=== PATIENT | male | born 2000 | race African-American/Black ===

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

== ENCOUNTER 2021-01-22 11:12 | Emergency (ER) | payer SELFPAY ==
[~2021-01-22] VITALS: Ht 172.7 cm; Wt 80.0 kg
[~2021-01-22 11:12] MED LIST: ZOFRAN4 M1 PO
[2021-01-22 11:47] LABS: URINE BILIRUBIN - DIPSTICK NEGATIVE (NEGATIVE); URINE BLOOD DIPSTICK TRACE-INTACT (NEGATIVE); URINE COLOR YELLOW; URINE GLUCOSE - DIPSTICK NEGATIVE (NEGATIVE); URINE KETONE NEGATIVE (NEGATIVE); URINE LEUK ESTERASE LARGE (NEGATIVE); URINE NITRITE - DIPSTICK NEGATIVE (Negative); URINE PH 6.5 (4.5-8.0); URINE PROTEIN - DIPSTICK NEGATIVE (NEG-TRACE); URINE UROBILINOGEN - DIPSTICK 0.2 E.U./dL (0.2)
[2021-01-22 11:53] LABS: URINE WBC 50-100 WBC/hpf (0-5)
[2021-01-22] MEDS ORDERED: KEFLEX500 MG PO (12:23)
[2021-01-22] MEDS ORDERED: NO HOME MEDS (12:36)
[2021-01-22 12:37] VITALS: BP 121/76
== END 2021-01-22 12:37 | disposition home or self-care (01) | DRG 690 ==
LOC: ED 11:12
PROVIDERS: Emergency Medicine
DX: N34.2 Other urethritis (principal)

== ENCOUNTER 2021-07-27 00:08 | Emergency (ER) | payer OTHER ==
[~2021-07-27] VITALS: Ht 180.3 cm; Wt 75.0 kg
[~2021-07-27 00:08] MED LIST changes: +KEFLEX500 MG PO; +NO HOME MEDS
[2021-07-27 00:51] LABS: HEMATOCRIT 47.7 % (39.0-50.0); HEMOGLOBIN 15.5 g/dl (14.0-18.0); IMMATURE GRANULOCYTES 0.2 % (0.0-5.0); MEAN CELL VOLUME 90.3 fL CALC (80.0-100.0); MEAN CORPUSCULAR HGB 29.4 pG CALC (26.0-32.0); MEAN CORPUSCULAR HGB CONC 32.5 g/dL CAL (32.0-36.0); NEUT# 1.98 thou/uL (1.82-7.42); RED BLOOD COUNT 5.28 mill/uL (4.70-6.10); RED CELL DISTRI WIDTH 11.8 % (11.5-15.5)
[2021-07-27 01:13] LABS: ALBUMIN 4.8 g/dL (3.2-5.0); ALKALINE PHOSPHATASE 63 u/l (38-126); ANION GAP 15 (6-22 (CALC)); BILIRUBIN, TOTAL 0.8 mg/dL (0.0-1.4); BUN 12 mg/dL (8-21); BUN/CREATININE RATIO 10 (12-20 (CALC)); CARBON DIOXIDE 28 mmol/l (22-30); CHLORIDE 100 mmol/l (95-108); CREATININE 1.2 mg/dL (0.7-1.3); GFR > 60 ML/MIN (>=60 (CALC)); GFR FOR AFR.AMER. > 60 ML/MIN (>=60 (CALC)); SGOT/AST 25 u/l (17-59); SODIUM 138 mmol/l (137-146); TOTAL PROTEIN 8.4 g/dL (6.3-8.2)
[2021-07-27 01:30] VITALS: BP 107/71
[2021-07-27] MEDS ORDERED: TORADOL PO (01:35)
== END 2021-07-27 01:45 | disposition home or self-care (01) | DRG 866 ==
LOC: ED 00:08
PROVIDERS: Family Medicine
DX: B34.9 Viral infection, unspecified (principal); R07.89 Other chest pain; Z20.822 Contact with and (suspected) exposure to COVID-19

== ENCOUNTER 2023-01-18 10:00 | Emergency (ER) | payer OTHER ==
[2023-01-18] VITALS (17 sets, daily range): BP systolic 39–126; BP diastolic 19–95
[~2023-01-18] VITALS: Ht 180.3 cm; Wt 63.0 kg
[~2023-01-18 10:00] MED LIST changes: +TORADOL PO
[2023-01-18 10:28] LABS: BASO% 0.8 % (0-3); EOS% 4.2 % (0-8); HEMATOCRIT 48.7 % (39.0-50.0); HEMOGLOBIN 15.6 g/dl (14.0-18.0); LYMPH% 54.2 % (15-41); MEAN CELL VOLUME 92.2 fL CALC (80.0-100.0); MEAN CORPUSCULAR HGB 29.5 pG CALC (26.0-32.0); MONO% 9.4 % (2-13); NEUT# 1.56 thou/uL (1.82-7.42); NEUT% 31.4 % (42-76); RED BLOOD COUNT 5.28 mill/uL (4.70-6.10)
[2023-01-18 10:44] LABS: ALKALINE PHOSPHATASE 52 u/l (38-126); ANION GAP 13 (6-22 (CALC)); BUN 12 mg/dL (9-20); BUN/CREATININE RATIO 11 (12-20 (CALC)); CARBON DIOXIDE 28 mmol/l (22-30); CHLORIDE 104 mmol/l (95-108); CREATININE 1.1 mg/dL (0.7-1.3); ETHYL ALCOHOL 0 mg/dl (0-30); GFR FOR AFR.AMER. > 60 ML/MIN (>=60 (CALC)); GFR OTHER RACES > 60 ML/MIN (>=60 (CALC)); POTASSIUM 4.1 mmol/l (3.5-5.1); SGOT/AST 26 u/l (17-59); SODIUM 141 mmol/l (137-146); TOTAL PROTEIN 8.4 g/dL (6.3-8.2)
[2023-01-18 10:45] LABS: BILIRUBIN, TOTAL 0.4 mg/dL (0.2-1.3)
[2023-01-18 10:46] LABS: URINE BILIRUBIN - DIPSTICK NEGATIVE (NEGATIVE); URINE BLOOD DIPSTICK TRACE-INTACT (NEGATIVE); URINE COLOR YELLOW; URINE GLUCOSE - DIPSTICK NEGATIVE (NEGATIVE); URINE KETONE NEGATIVE (NEGATIVE); URINE LEUK ESTERASE NEGATIVE (NEGATIVE); URINE PROTEIN - DIPSTICK NEGATIVE (NEG-TRACE); URINE SPECIFIC GRAVITY 1.025; URINE UROBILINOGEN - DIPSTICK 0.2 E.U./dL (0.2)
[2023-01-18 10:48] LABS: URINE NITRITE - DIPSTICK NEGATIVE (Negative)
== END 2023-01-18 14:28 | disposition short-term general hospital (02) ==
LOC: ED 10:00
PROVIDERS: Family Medicine
DX: R56.9 Unspecified convulsions (principal); R10.84 Generalized abdominal pain; K57.30 Diverticulosis of large intestine without perforation or abscess without bleeding
CPT/HCPCS: J1953

== ENCOUNTER 2023-09-15 08:02 | Emergency (ER) | payer OTHER ==
[~2023-09-15] VITALS: Ht 180.3 cm; Wt 62.0 kg
[2023-09-15] VITALS (25 sets, daily range): BP systolic 101–153; BP diastolic 61–110
[~2023-09-15 08:02] MED LIST changes: +ONDANSETRON4 MG PO; +PROTONIX40 M2 PO; +TRAMADOL HYDROC50 M1 PO
[2023-09-15 09:10] LABS: BASO% 0.4 % (0-3); EOS% 1.3 % (0-8); HEMATOCRIT 43.8 % (39.0-50.0); HEMOGLOBIN 14.4 g/dl (14.0-18.0); IMMATURE GRANULOCYTES 0.1 % (0.0-5.0); LYMPH% 29.1 % (15-41); MEAN CORPUSCULAR HGB 30.3 pG CALC (26.0-32.0); MEAN CORPUSCULAR HGB CONC 32.9 g/dL CAL (32.0-36.0); MONO% 7.1 % (2-13); NEUT# 4.43 thou/uL (1.82-7.42); RED BLOOD COUNT 4.76 mill/uL (4.70-6.10); RED CELL DISTRI WIDTH 11.8 % (11.5-15.5)
[2023-09-15 09:37] LABS: ALBUMIN 4.7 g/dL (3.2-5.0); ALKALINE PHOSPHATASE 64 u/l (38-126); ANION GAP 14 (6-22 (CALC)); BILIRUBIN, TOTAL 0.7 mg/dL (0.2-1.3); BUN 16 mg/dL (9-20); BUN/CREATININE RATIO 14 (12-20 (CALC)); CARBON DIOXIDE 24 mmol/l (22-30); CHLORIDE 106 mmol/l (95-108); CREATININE 1.2 mg/dL (0.7-1.3); ETHYL ALCOHOL 0 mg/dl (0-30); GFR FOR AFR.AMER. > 60 ML/MIN (>=60 (CALC)); GFR OTHER RACES > 60 ML/MIN (>=60 (CALC)); LIPASE 59 u/l (23-300); POTASSIUM 4.6 mmol/l (3.5-5.1); SGOT/AST 27 u/l (17-59); SODIUM 139 mmol/l (137-146); TOTAL PROTEIN 7.6 g/dL (6.3-8.2)
[2023-09-15 11:03] LABS: URINE BILIRUBIN - DIPSTICK Negative (NEGATIVE); URINE BLOOD DIPSTICK Negative (NEGATIVE); URINE COLOR Yellow; URINE GLUCOSE - DIPSTICK Negative (NEGATIVE); URINE KETONE 80 mg/dL (NEGATIVE); URINE LEUK ESTERASE Negative (NEGATIVE); URINE NITRITE - DIPSTICK Negative (Negative); URINE PH 8.5 (4.5-8.0); URINE PROTEIN - DIPSTICK Trace mg/dL (NEG-TRACE); URINE UROBILINOGEN - DIPSTICK 0.2 E.U./dL (0.2)
== END 2023-09-15 13:44 | disposition home or self-care (01) ==
LOC: ED 08:02
PROVIDERS: Family Medicine
DX: R11.2 Nausea with vomiting, unspecified (principal); R10.84 Generalized abdominal pain

== ENCOUNTER 2024-04-25 01:22 | Emergency (ER) | payer BC ==
[~2024-04-25] VITALS: Ht 175.3 cm; Wt 62.0 kg
[2024-04-25] MEDS ORDERED: Pantoprazole Sodium 40 MG VIAL (Protonix) IV STA (01:38)
[2024-04-25] MEDS ORDERED: SODIUM CHLORIDE 0.9% 1,000 ML IV STA (01:38)
[2024-04-25] MEDS ORDERED: PROMETHAZINE HCL 25 MG/ML AMP IV ONE (01:40)
[2024-04-25] MEDS ORDERED: KETOROLAC TROMETHAMINE 30 MG/ML SDV IV ONE (01:45)
[2024-04-25] MEDS ORDERED: OMEPRAZOLE DR40 MG (02:15)
[2024-04-25 02:25] LABS: BASO% 0.3 % (0-3); EOS% 0.4 % (0-8); HEMOGLOBIN 15.3 g/dl (14.0-18.0); IMMATURE GRANULOCYTES 0.3 % (0.0-5.0); LYMPH% 19.8 % (15-41); MEAN CELL VOLUME 88.9 fL CALC (80.0-100.0); MEAN CORPUSCULAR HGB 30.2 pG CALC (26.0-32.0); MONO% 6.1 % (2-13); NEUT# 7.55 thou/uL (1.82-7.42); NEUT% 73.1 % (42-76); RED BLOOD COUNT 5.06 mill/uL (4.70-6.10); RED CELL DISTRI WIDTH 11.7 % (11.5-15.5)
[2024-04-25 02:37] LABS: BILIRUBIN, TOTAL 0.8 mg/dL (0.2-1.3); POTASSIUM 3.8 mmol/l (3.5-5.1); TOTAL PROTEIN 8.7 g/dL (6.3-8.2)
[2024-04-25 04:06] LABS: URINE BILIRUBIN - DIPSTICK Negative (NEGATIVE); URINE BLOOD DIPSTICK Negative (NEGATIVE); URINE COLOR Yellow; URINE GLUCOSE - DIPSTICK Negative (NEGATIVE); URINE KETONE 40 mg/dL (NEGATIVE); URINE LEUK ESTERASE Negative (NEGATIVE); URINE NITRITE - DIPSTICK Negative (Negative); URINE PH 8.5 (4.5-8.0); URINE PROTEIN - DIPSTICK Negative (NEG-TRACE); URINE UROBILINOGEN - DIPSTICK 0.2 E.U./dL (0.2)
[2024-04-25] MEDS ORDERED: PROMETHAZINE HY25 M1 PO (04:30)
[2024-04-25 04:34] VITALS: BP 128/83
== END 2024-04-25 04:52 | disposition home or self-care (01) | DRG 392 ==
LOC: ED 01:22
PROVIDERS: Family Medicine
DX: K52.9 Noninfective gastroenteritis and colitis, unspecified (principal); Z20.822 Contact with and (suspected) exposure to COVID-19
CPT/HCPCS: J2470

== ENCOUNTER 2024-08-30 12:09 | Emergency (ER) | payer OTHER ==
[~2024-08-30] VITALS: Ht 177.8 cm; Wt 54.4 kg
[2024-08-30] VITALS (12 sets, daily range): BP systolic 113–148; BP diastolic 69–101
[~2024-08-30 12:09] MED LIST changes: +LEXAPRO10 MG PO; +OMEPRAZOLE DR40 MG; +PROMETHAZINE HY25 M1 PO; +PROTONIX40 MG PO; +REGLAN10 MG PO
[2024-08-30] MEDS ORDERED: DiphenhydrAMINE HCL 50 MG/ML SDV IV ONE (14:15)
[2024-08-30] MEDS ORDERED: SODIUM CHLORIDE 0.9% 1,000 ML IV ONE ×2 (14:15)
[2024-08-30] MEDS ORDERED: HALOPERIDOL LACTATE 5 MG/ML SDV IV ONE (14:15)
[2024-08-31] MEDS ORDERED: BENADRYL25 M1 PO (14:18)
== END 2024-08-30 17:21 | disposition home or self-care (01) | DRG 392 ==
LOC: ED 12:09
DX: R11.2 Nausea with vomiting, unspecified (principal); R10.84 Generalized abdominal pain; K57.30 Diverticulosis of large intestine without perforation or abscess without bleeding; F41.9 Anxiety disorder, unspecified; K21.9 Gastro-esophageal reflux disease without esophagitis; Z87.11 Personal history of peptic ulcer disease
CPT/HCPCS: J1200; J1630

== ENCOUNTER 2024-08-31 12:22 | Emergency (ER) | payer OTHER ==
[~2024-08-31] VITALS: Ht 177.8 cm; Wt 58.0 kg
[2024-08-31 12:30] VITALS: BP 128/104
[2024-08-31] MEDS ORDERED: DiphenhydrAMINE HCL 50 MG/ML SDV IV STA (12:31)
[2024-08-31] MEDS ORDERED: SODIUM CHLORIDE 0.9% 1,000 ML IV ONE ×2 (12:35→12:36)
[2024-08-31] MEDS ORDERED: LORazepam 2 MG/ML IV ONE (12:40)
[2024-08-31 13:00] VITALS: BP 107/73
[2024-08-31 13:30] VITALS: BP 110/71
[2024-08-31 14:00] VITALS: BP 111/77
[2024-08-31] MEDS ORDERED: BENADRYL25 M1 PO (14:18)
[2024-08-31 14:31] VITALS: BP 111/77
== END 2024-08-31 14:30 | disposition home or self-care (01) | DRG 93 ==
LOC: ED 12:22
DX: G24.09 Other drug induced dystonia (principal); T43.505A Adverse effect of unspecified antipsychotics and neuroleptics, initial encounter; F41.9 Anxiety disorder, unspecified; K21.9 Gastro-esophageal reflux disease without esophagitis; Z87.11 Personal history of peptic ulcer disease
CPT/HCPCS: J1200; J2060

== ENCOUNTER 2024-09-29 08:50 | Emergency (ER) | payer OTHER ==
[2024-09-29] VITALS (9 sets, daily range): BP systolic 96–117; BP diastolic 65–87
[~2024-09-29] VITALS: Ht 177.8 cm; Wt 57.0 kg
[~2024-09-29 08:50] MED LIST changes: +BENADRYL25 M1 PO
[2024-09-29] MEDS ORDERED: DiphenhydrAMINE HCL 50 MG/ML SDV IV ONE ×2 (09:05→10:50)
[2024-09-29] MEDS ORDERED: HALOPERIDOL LACTATE 5 MG/ML SDV IV ONE (09:05)
[2024-09-29] MEDS ORDERED: SODIUM CHLORIDE 0.9% 1,000 ML IV ONE (09:05)
[2024-09-29 09:17] LABS: URINE BILIRUBIN - DIPSTICK Negative (NEGATIVE); URINE BLOOD DIPSTICK Negative (NEGATIVE); URINE GLUCOSE - DIPSTICK Negative (NEGATIVE); URINE KETONE Negative (NEGATIVE); URINE LEUK ESTERASE Negative (NEGATIVE); URINE NITRITE - DIPSTICK Negative (Negative); URINE PROTEIN - DIPSTICK Trace mg/dL (NEG-TRACE); URINE SPECIFIC GRAVITY 1.025; URINE UROBILINOGEN - DIPSTICK 0.2 E.U./dL (0.2)
[2024-09-29 09:19] LABS: URINE COLOR Yellow
[2024-09-29] MEDS ORDERED: SPS15 GM/601 PO (18:22)
== END 2024-09-29 11:02 | disposition home or self-care (01) | DRG 392 ==
LOC: ED 08:50
PROVIDERS: Family Medicine
DX: R11.2 Nausea with vomiting, unspecified (principal); F41.9 Anxiety disorder, unspecified; K21.9 Gastro-esophageal reflux disease without esophagitis; Z87.11 Personal history of peptic ulcer disease; Z87.19 Personal history of other diseases of the digestive system
CPT/HCPCS: J1200; J1630

== ENCOUNTER 2024-09-29 10:46 | Emergency (ER) | payer OTHER ==
[2024-09-29] VITALS (23 sets, daily range): BP systolic 94–121; BP diastolic 57–83
[~2024-09-29] VITALS: Ht 177.8 cm; Wt 62.0 kg
[2024-09-29] MEDS ORDERED: methylPREDNISolone SODIUM SUCC 125 MG/2 ML SDV IV STA (10:52)
[2024-09-29] MEDS ORDERED: FAMOTIDINE 10MG/ML 2ML SDV IV STA (10:52)
[2024-09-29] MEDS ORDERED: DiphenhydrAMINE HCL 50 MG/ML SDV IV STA (10:52)
[2024-09-29 11:16] LABS: BASO% 0.2 % (0-3); EOS% 1.2 % (0-8); HEMATOCRIT 50.6 % (39.0-50.0); HEMOGLOBIN 16.3 g/dl (14.0-18.0); IMMATURE GRANULOCYTES 0.1 % (0.0-5.0); LYMPH% 21.7 % (15-41); MEAN CELL VOLUME 93.5 fL CALC (80.0-100.0); MEAN CORPUSCULAR HGB 30.1 pG CALC (26.0-32.0); MEAN CORPUSCULAR HGB CONC 32.2 g/dL CAL (32.0-36.0); MONO% 11.5 % (2-13); NEUT# 6.95 thou/uL (1.82-7.42); NEUT% 65.3 % (42-76); RED BLOOD COUNT 5.41 mill/uL (4.70-6.10); RED CELL DISTRI WIDTH 11.5 % (11.5-15.5)
[2024-09-29 11:31] LABS: ALBUMIN 5.1 g/dL (3.2-5.0); BILIRUBIN, TOTAL 0.9 mg/dL (0.2-1.3); CREATININE 1.1 mg/dL (0.7-1.3); TOTAL PROTEIN 8.3 g/dL (6.3-8.2)
[2024-09-29 11:34] LABS: POTASSIUM 5.3 mmol/l (3.5-5.1)
[2024-09-29] MEDS ORDERED: SODIUM CHLORIDE 0.9% 1,000 ML IV ONE ×2 (12:35)
[2024-09-29] MEDS ORDERED: DiphenhydrAMINE HCL 50 MG/ML SDV IV ONE (12:40)
[2024-09-29] MEDS ORDERED: LORazepam 2 MG/ML IV ONE (13:55)
[2024-09-29] MEDS ORDERED: MIDAZOLAM HCL 2 MG/2 ML VIAL IV ONE ×2 (14:20→15:35)
[2024-09-29 16:13] LABS: POTASSIUM 5.6 mmol/l (3.5-5.1)
[2024-09-29] MEDS ORDERED: SODIUM POLYSTYRENE SULFONATE 15 G/BTL POWDER PO ONE (17:10)
[2024-09-29] MEDS ORDERED: SPS15 GM/601 PO (18:22)
== END 2024-09-29 18:41 | disposition home or self-care (01) | DRG 93 ==
LOC: ED 10:46
PROVIDERS: Family Medicine
DX: G24.09 Other drug induced dystonia (principal); T43.4X5A Adverse effect of butyrophenone and thiothixene neuroleptics, initial encounter; F41.9 Anxiety disorder, unspecified; K21.9 Gastro-esophageal reflux disease without esophagitis; Z87.11 Personal history of peptic ulcer disease; Z87.19 Personal history of other diseases of the digestive system
CPT/HCPCS: J1200

== ENCOUNTER 2024-09-30 15:33 | Emergency (ER) | payer OTHER ==
[~2024-09-30] VITALS: Ht 177.8 cm; Wt 61.0 kg
[~2024-09-30 15:33] MED LIST changes: +SPS15 GM/601 PO
[2024-09-30 16:25] VITALS: BP 114/77
== END 2024-09-30 16:59 | disposition left against medical advice (07) | DRG 951 ==
LOC: ED 15:33 → LWOBS 16:59 → ED 16:59
DX: Z53.21 Procedure and treatment not carried out due to patient leaving prior to being seen by health care provider (principal)